=== PATIENT | male | born 1955 | race American Indian/Alaskan Native ===

== ENCOUNTER 2017-08-05 15:02 | Emergency (ER) | payer SELFPAY ==
--- NOTE | 2017-08-05 20:00 | Emergency Department Report ---
ED Extremity Problem HPI - General Chief complaint: Extremity Injury, Lower Stated complaint: SHARP PAIN ON THIGH AREA Time Seen by Provider: 08/05/17 19:38 Source: patient Mode of arrival: Ambulatory Limitations: No Limitations - History of Present Illness Initial comments: 62-year-old male past medical history hypertension, diabetes, obesity presents with complaint of one month of consistent worsening bilateral upper thigh pain. Patient denies rash nausea vomiting chest pain shortness of breath fever or chills. Denies any history of DVT. Denies any direct trauma no rash no recent falls. Patient is awake alert and oriented 3 no dyspnea no reports of shortness of breath. Denies family history of DVT or PE. MD Complaint: extremity pain Onset/Timin -: month(s) Location: bilateral lower extremity (b/l upper thighs) Quality: aching, constant Consistency: constant Worsens with: nothing Associated Symptoms: myalgias - Related Data Home Medications Medication Instructions Recorded Confirmed Last Taken Lisinopril/Hydrochlorothiazide 07/05/13 07/05/13 06/18/13 [Zestoretic 20-25 mg] Lisinopril/Hydrochlorothiazide 1 tab PO QDAY 07/05/13 07/05/13 06/18/13 [Zestoretic 20-25 mg] Previous Rx's Medication Instructions Recorded Last Taken Type Lisinopril [Zestril TAB] 20 mg PO QDAY #30 tablet 07/05/13 Unknown Rx Cyclobenzaprine [Flexeril] 10 mg PO TID PRN #12 tablet 08/05/17 Unknown Rx Naproxen [Naprosyn TAB] 500 mg PO BID PRN #30 tablet 08/05/17 Unknown Rx Allergies Allergy/AdvReac Type Severity Reaction Status Date / Time propoxyphene HCl Allergy Nausea Verified 07/05/13 11:25 [From Darvon] shellfish derived Allergy Rash Verified 08/05/17 15:20 ED Review of Systems ROS: Stated complaint: SHARP PAIN ON THIGH AREA Other details as noted in HPI Constitutional: denies: chills, fever Eyes: denies: eye pain, eye discharge, vision change ENT: denies: ear pain, throat pain Respiratory: denies: cough, shortness of breath, wheezing Cardiovascular: denies: chest pain, palpitations Endocrine: no symptoms reported Gastrointestinal: denies: abdominal pain, nausea, diarrhea Genitourinary: denies: urgency, dysuria Musculoskeletal: as per HPI, myalgia (b/l upper thighs). denies: back pain, joint swelling, arthralgia Skin: denies: rash, lesions Neurological: denies: headache, weakness, paresthesias Psychiatric: denies: anxiety, depression Hematological/Lymphatic: denies: easy bleeding, easy bruising ED Past Medical Hx - Past Medical History Previous Medical History?: Yes Hx Hypertension: Yes - Surgical History Past Surgical History?: Yes Additional Surgical History: right thumb surgery - Social History Smoking Status: Never Smoker Substance Use Type: Prescribed - Medications Home Medications: Home Medications Medication Instructions Recorded Confirmed Last Taken Type Lisinopril [Zestril TAB] 20 mg PO QDAY #30 tablet 07/05/13 Unknown Rx Lisinopril/Hydrochlorothiazide 07/05/13 07/05/13 06/18/13 History [Zestoretic 20-25 mg] Lisinopril/Hydrochlorothiazide 1 tab PO QDAY 07/05/13 07/05/13 06/18/13 History [Zestoretic 20-25 mg] Cyclobenzaprine [Flexeril] 10 mg PO TID PRN #12 tablet 08/05/17 Unknown Rx Naproxen [Naprosyn TAB] 500 mg PO BID PRN #30 tablet 08/05/17 Unknown Rx ED Physical Exam - General Limitations: No Limitations General appearance: alert, in no apparent distress - Head Head exam: Present: atraumatic, normocephalic - Eye Eye exam: Present: normal appearance, PERRL, EOMI - ENT ENT exam: Present: mucous membranes moist - Neck Neck exam: Present: normal inspection, full ROM - Respiratory Respiratory exam: Present: normal lung sounds bilaterally. Absent: respiratory distress - Cardiovascular Cardiovascular Exam: Present: regular rate, normal rhythm. Absent: systolic murmur, diastolic murmur, rubs, gallop - GI/Abdominal GI/Abdominal exam: Present: soft, normal bowel sounds - Rectal Rectal exam: Present: deferred - Extremities Exam Extremities exam: Present: normal inspection, normal capillary refill (distal capillary refill less than one second all toes bilateral feet, distal dorsalis pedis and posterior tibial pulses strong to palpation bilaterally, popliteal pulses strong to palpation on clinical exam bilaterally. Patient has no calf tenderness on clinical exam, minimal to no tenderness on palpation of bilateral thighs.) - Back Exam Back exam: Present: normal inspection - Neurological Exam Neurological exam: Present: alert, oriented X3, CN II-XII intact, normal gait - Psychiatric Psychiatric exam: Present: normal affect, normal mood - Skin Skin exam: Present: warm, dry, intact, normal color. Absent: rash ED Course Vital Signs 08/05/17 08/05/17 15:16 21:26 Temperature 98.9 F 98.1 F Pulse Rate 64 50 L Respiratory 18 16 Rate Blood Pressure 151/85 Blood Pressure 153/93 [Right] O2 Sat by Pulse 94 98 Oximetry ED Medical Decision Making - Lab Data Result diagrams: 08/05/17 20:07 08/05/17 20:02 - Medical Decision Making A/P: Bilateral upper thigh pain 1-labs unremarkable, d-dimer negative, CK unremarkable 2-patient is fully ambulatory strength 5 out of 5 both lower extremities no external signs of cellulitis abscesses erythema or tenderness to touch on palpation of both thigh regions, distal dorsalis pedis and posterior tibial pulses intact bilaterally, popliteal pulses intact, patient has no Homans sign bilaterally in either calf. Distal ankle and bilateral knee jerk reflexes intact on exam 3-well's score 1 points Low risk group for DVT. Unlikely according to [facility] DVT studies. 4- patient's follow up with primary doctor, NSAIDs and muscle relaxants when necessary Critical care attestation.: If time is entered above; I have spent that time in minutes in the direct care of this critically ill patient, excluding procedure time. ED Disposition Clinical Impression: Thigh pain, musculoskeletal Qualifiers: Laterality: unspecified laterality Qualified Code(s): M79.606 - Pain in leg, unspecified Disposition: TO HOME OR SELFCARE Is pt being admited?: No Does the pt Need Aspirin: No Condition: Stable Instructions: Musculoskeletal Pain (ED) Prescriptions: Cyclobenzaprine [Flexeril] 10 mg PO TID PRN #12 tablet PRN Reason: Muscle Spasm Naproxen [Naprosyn TAB] 500 mg PO BID PRN #30 tablet PRN Reason: Pain Referrals: [facility] [Outside] - 3-5 Days [facility] [Outside] - 3-5 Days PRIMARY CAREMD [Primary Care Provider] - 3-5 Days MIKEY DINH MD [Staff Physician] - 3-5 Days BRANDEN MCDOWELL MD [Referring] - 3-5 Days Forms: Work/School Release Form(ED)
[2017-08-05 20:18] LABS: Basophils % (Auto) 0.2 % (0.0-1.8); Eosinophils % (Auto) 1.5 % (0.0-4.3); Hematocrit 37.7 % (35.5-45.6); Hemoglobin 12.1 gm/dl (11.8-15.2); Mean Corpuscular HGB Conc 32 % (32-34); Mean Corpuscular Hemoglobin 27 pg (28-32); Mean Corpuscular Volume 85 fl (84-94); Platelet Count 228 K/mm3 (140-440); Red Blood Count 4.44 M/mm3 (3.65-5.03); Red Cell Distribution Width 14.5 % (13.2-15.2)
[2017-08-05 20:36] LABS: Anion Gap 15 mmol/L; BUN/Creatinine Ratio 13; Blood Urea Nitrogen 13 mg/dL (9-20); Calcium 9.1 mg/dL (8.4-10.2); Carbon Dioxide 27 mmol/L (22-30); Chloride 102.9 mmol/L (98-107); Creatine Kinase 171 units/L (55-170); Glucose 122 mg/dL (75-100); Potassium 4.7 mmol/L (3.6-5.0); Sodium 140 mmol/L (137-145)
[2017-08-05] MEDS ORDERED: MOTRIN PO ONE (20:38)
[2017-08-05] MEDS ORDERED: TYLENOL #3 PO ONE (20:38)
[2017-08-05 21:29] VITALS: BP 153/93
== END 2017-08-05 21:27 | disposition home or self-care (01) ==
LOC: ED 15:02
DX: M79.651 Pain in right thigh (principal); M79.652 Pain in left thigh; M79.1 Myalgia; I10 Essential (primary) hypertension; Z88.8 Allergy status to other drugs, medicaments and biological substances; Z91.013 Allergy to seafood
CPT/HCPCS: 36415; 80048; 82550; 85025; 85379; 99283

== ENCOUNTER 2019-01-07 08:44 | Emergency (ER) | payer OTHER ==
[2019-01-07 09:03] VITALS: BP 163/74
[2019-01-07] MEDS ORDERED: PERCOCET 5/325 PO ONE (10:01)
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
== END 2019-01-07 12:02 | disposition home or self-care (01) ==
LOC: ED 08:44
DX: R51 Headache (principal); M54.2 Cervicalgia; M54.5 Low back pain; M25.512 Pain in left shoulder; I10 Essential (primary) hypertension; V89.2XXA Person injured in unspecified motor-vehicle accident, traffic, initial encounter; Y93.89 Activity, other specified; Y92.89 Other specified places as the place of occurrence of the external cause; Y99.8 Other external cause status
CPT/HCPCS: 70450; 72100; 72125; 99284